=== PATIENT | female | born 1985 | race African-American/Black ===

== ENCOUNTER 2017-04-17 13:00 | Emergency (ER) | payer OTHER ==
[~2017-04-17] VITALS: Ht 167.6 cm; Wt 90.7 kg
== END 2017-04-17 13:56 | disposition home or self-care (01) ==
LOC: CED 13:00 → CFTX 13:00
DX: S40.812A Abrasion of left upper arm, initial encounter (principal); Z23 Encounter for immunization; W23.0XXA Caught, crushed, jammed, or pinched between moving objects, initial encounter; Y92.009 Unspecified place in unspecified non-institutional (private) residence as the place of occurrence of the external cause
CPT/HCPCS: 90471; 90715; 99283